=== PATIENT | male | born 1985 | race American Indian/Alaskan Native ===

== ENCOUNTER 2016-11-08 14:24 | Emergency (ER) | payer SELFPAY ==
[2016-11-08 14:32] VITALS: BP 160/113
== END 2016-11-08 16:50 | disposition left against medical advice (07) ==
LOC: ED 14:24
DX: R51 Headache (principal); R42 Dizziness and giddiness; Z53.21 Procedure and treatment not carried out due to patient leaving prior to being seen by health care provider

== ENCOUNTER 2019-04-26 06:57 | Emergency (ER) | payer SELFPAY ==
[2019-04-26] MEDS ORDERED: ASPIRIN PO ONE (07:18)
--- NOTE | 2019-04-26 07:50 | XRay Report ---
CHEST 2 VIEWS INDICATION: Left chest pain radiating to left arm since this morning. COMPARISON: None FINDINGS: Support devices: None. Heart: Within normal limits. Lungs/pleura: No acute air space or interstitial disease. No pneumothorax. Additional findings: None. IMPRESSION: Normal chest xray. Signer Name: Jama Markham Jr, MD Signed: 04/26/2019 7:45 AM Workstation Name: [id number]
[2019-04-26 07:52] LABS: Basophils # (Auto) 0.1 K/mm3 (0.0-0.1); Basophils % (Auto) 0.8 % (0.0-1.8); Eosinophils # (Auto) 0.2 K/mm3 (0.0-0.4); Eosinophils % (Auto) 2.1 % (0.0-4.3); Hemoglobin 16.6 gm/dl (11.8-15.2); Lymphocytes # (Auto) 3.7 K/mm3 (1.2-5.4); Lymphocytes % (Auto) 38.7 % (13.4-35.0); Mean Corpuscular HGB Conc 34 % (32-34); Mean Corpuscular Volume 85 fl (84-94); Monocytes # (Auto) 0.8 K/mm3 (0.0-0.8); Monocytes % (Auto) 8.3 % (0.0-7.3); Platelet Count 197 K/mm3 (140-440); Red Blood Count 5.75 M/mm3 (3.65-5.03); Red Cell Distribution Width 14.3 % (13.2-15.2)
[2019-04-26 08:14] LABS: BUN/Creatinine Ratio 12; Blood Urea Nitrogen 13 mg/dL (9-20); Calcium 9.5 mg/dL (8.4-10.2); Hemolysis Index 37
[2019-04-26] MEDS ORDERED: PEPCID PO ONE (08:49)
[2019-04-26] MEDS ORDERED: LIDOCAINE VISCOUS 2% PO ONE (08:50)
[2019-04-26] MEDS ORDERED: ALUM-MAG HYDROX-SIMETH 200-200-20MG/5ML PO ONE (08:50)
--- NOTE | 2019-04-26 09:52 | Emergency Department Report ---
ED Chest Pain HPI - General Chief Complaint: Chest Pain Stated Complaint: CP/L ARM PAIN Time Seen by Provider: 04/26/19 08:43 Source: patient Mode of arrival: Ambulatory Limitations: No Limitations - History of Present Illness Initial Comments: Patient is a 34-year-old -[place] male who states that approximately 1 AM last night he started having some similar chest pain that was sharp in nature it woke him up. Patient states he felt a lot of discomfort in his shoulders as well. Patient states he initially somewhat improved now she is at the hospital. Patient denies any shortness of breath or pleuritic component. Patient never had this type pain before. Patient's last meal was [employer] pizza before he laid down to go to bed. Patient has a history of hypertension and took his lisinopril and aspirin this morning. Severity scale (0 -10): 4 - Related Data Home Medications Medication Instructions Recorded Confirmed Last Taken Lisinopril/Hydrochlorothiazide 1 tab PO DAILY 11/17/15 11/17/15 Unknown Previous Rx's Medication Instructions Recorded Last Taken Type Ibuprofen [Motrin] 800 mg PO Q8HR PRN #45 tablet 11/17/15 Unknown Rx Lisinopril/Hydrochlorothiazide 1 tab PO QDAY #30 tablet 11/17/15 Unknown Rx [Zestoretic 10-12.5 mg] levoFLOXacin [Levaquin TAB] 500 mg PO QDAY #5 tablet 11/17/15 Unknown Rx Ondansetron [Zofran Odt] 4 mg PO Q6H #7 tab.rapdis 02/11/16 Unknown Rx Dicyclomine [Bentyl] 10 mg PO QID #10 capsule 04/26/19 Unknown Rx Famotidine [Pepcid] 40 mg PO QHS #10 tablet 04/26/19 Unknown Rx Allergies Allergy/AdvReac Type Severity Reaction Status Date / Time seafood Allergy Hives Uncoded 11/17/15 05:32 Heart Score - HEART Score History: Slightly suspicious EKG: Normal Age: < 45 Risk factors: 1-2 risk factors Troponin: < normal limit HEART Score: 1 ED Review of Systems ROS: Stated complaint: CP/L ARM PAIN Other details as noted in HPI Comment: All other systems reviewed and negative ED Past Medical Hx - Past Medical History Hx Hypertension: Yes (Takes 50mg Lisinopril) - Surgical History Past Surgical History?: No - Social History Smoking Status: Never Smoker Substance Use Type: None - Medications Home Medications: Home Medications Medication Instructions Recorded Confirmed Last Taken Type Ibuprofen [Motrin] 800 mg PO Q8HR PRN #45 tablet 11/17/15 Unknown Rx Lisinopril/Hydrochlorothiazide 1 tab PO DAILY 11/17/15 11/17/15 Unknown History Lisinopril/Hydrochlorothiazide 1 tab PO QDAY #30 tablet 11/17/15 Unknown Rx [Zestoretic 10-12.5 mg] levoFLOXacin [Levaquin TAB] 500 mg PO QDAY #5 tablet 11/17/15 Unknown Rx Ondansetron [Zofran Odt] 4 mg PO Q6H #7 tab.rapdis 02/11/16 Unknown Rx Dicyclomine [Bentyl] 10 mg PO QID #10 capsule 04/26/19 Unknown Rx Famotidine [Pepcid] 40 mg PO QHS #10 tablet 04/26/19 Unknown Rx ED Physical Exam - General Limitations: No Limitations General appearance: alert, in no apparent distress - Head Head exam: Present: atraumatic, normocephalic - Eye Eye exam: Present: normal appearance, PERRL, EOMI - ENT ENT exam: Present: mucous membranes moist - Neck Neck exam: Present: normal inspection - Respiratory Respiratory exam: Present: normal lung sounds bilaterally. Absent: respiratory distress, wheezes, rales, rhonchi - Cardiovascular Cardiovascular Exam: Present: regular rate, normal rhythm, normal heart sounds. Absent: systolic murmur, diastolic murmur, rubs, gallop - GI/Abdominal GI/Abdominal exam: Present: soft, tenderness (epigastric), normal bowel sounds. Absent: distended, guarding, rebound, rigid - Rectal Rectal exam: Present: deferred - Extremities Exam Extremities exam: Present: normal inspection - Back Exam Back exam: Present: normal inspection - Neurological Exam Neurological exam: Present: alert, oriented X3 - Psychiatric Psychiatric exam: Present: normal affect, normal mood - Skin Skin exam: Present: warm, dry, intact, normal color. Absent: rash ED Course Vital Signs 04/26/19 04/26/19 04/26/19 07:14 07:56 07:58 Temperature 98.0 F Pulse Rate 73 Respiratory 18 18 Rate Blood Pressure 174/105 Blood Pressure 166/111 [Right] O2 Sat by Pulse 98 99 Oximetry ED Medical Decision Making - Lab Data Result diagrams: 04/26/19 07:29 04/26/19 07:29 Lab Results 04/26/19 04/26/19 04/26/19 Range/Units 07:29 07:29 08:52 WBC 9.6 (4.5-11.0) K/mm3 RBC 5.75 H (3.65-5.03) M/mm3 Hgb 16.6 H (11.8-15.2) gm/dl Hct 49.0 H (35.5-45.6) % MCV 85 (84-94) fl MCH 29 (28-32) pg MCHC 34 (32-34) % RDW 14.3 (13.2-15.2) % Plt Count 197 (140-440) K/mm3 Lymph % (Auto) 38.7 H (13.4-35.0) % [place] % (Auto) 8.3 H (0.0-7.3) % Eos % (Auto) 2.1 (0.0-4.3) % Baso % (Auto) 0.8 (0.0-1.8) % Lymph # 3.7 (1.2-5.4) K/mm3 [place] # 0.8 (0.0-0.8) K/mm3 Eos # 0.2 (0.0-0.4) K/mm3 Baso # 0.1 (0.0-0.1) K/mm3 Seg Neutrophils % 50.1 (40.0-70.0) % Seg Neutrophils # 4.8 (1.8-7.7) K/mm3 Sodium 140 (137-145) mmol/L Potassium 4.1 (3.6-5.0) mmol/L Chloride 103.6 (98-107) mmol/L Carbon Dioxide 25 (22-30) mmol/L Anion Gap 16 mmol/L BUN 13 (9-20) mg/dL Creatinine 1.1 (0.8-1.5) mg/dL Estimated GFR > 60 ml/min BUN/Creatinine Ratio 12 % Glucose 114 H (75-100) mg/dL Calcium 9.5 (8.4-10.2) mg/dL Troponin T < 0.010 < 0.010 (0.00-0.029) ng/mL - EKG Data -: EKG Interpreted by Me EKG shows normal: sinus rhythm, axis, intervals, QRS complexes, ST-T waves Rate: normal - EKG Data Interpretation: normal EKG - Radiology Data CXR WNL - Medical Decision Making Patient with a very low heart score. Patient stable for discharge. Patient likely had acid reflux secondary to what he ate before he went to bed. Patient given GI follow-up as well as cardiology follow-up be started on Pepcid. Patient discharged home. Critical care attestation.: If time is entered above; I have spent that time in minutes in the direct care of this critically ill patient, excluding procedure time. ED Disposition Clinical Impression: Atypical chest pain, GERD (gastroesophageal reflux disease) Disposition: TO HOME OR SELFCARE Is pt being admited?: No Does the pt Need Aspirin: No Condition: Stable Instructions: Chest Pain (ED) Referrals: [facility] [Provider Group] - 3-5 Days TIGRE IMR MD [Staff Physician] - 3-5 Days Forms: Work/School Release Form(ED) Time of Disposition: 09:53
[2019-04-26 10:07] VITALS: BP 192/119
== END 2019-04-26 10:07 | disposition home or self-care (01) ==
LOC: ED 06:57
DX: K21.9 Gastro-esophageal reflux disease without esophagitis (principal); I10 Essential (primary) hypertension; Z91.013 Allergy to seafood
CPT/HCPCS: 36415; 71046; 80048; 84484; 85025; 93005; 93010